=== PATIENT | male | born 1965 | race Caucasian/White ===

== ENCOUNTER → 2020-06-15 | Outpatient (CLI) | payer OTHER ==
[2015-04-29 13:02] VITALS: BP 128/73
[~2020-06-15] MED LIST: CELE200C PO; FERR325T14 PO; NAPR-514 PO; OMEG1000 PO; OXYC1TAB19 PO; WARF5TAB2 PO
--- NOTE | 2020-06-15 11:24 | KCIC ---
STUDY: MRI of the left shoulder without contrast INDICATION: Left shoulder pain. Recent trauma. COMPARISON: None. TECHNIQUE: Multiplanar MR imaging of the left shoulder performed without the use of intravenous or intra-articular contrast. 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 Relatively mild AC joint arthrosis though a cystic change at the clavicle side of the joint and mild intra-articular/capsular edema. No acromioclavicular or coracoclavicular ligament disruption. Mild subacromial subdeltoid bursitis. Rotator cuff: Full-thickness, essentially fullwidth tearing of both the supraspinatus and infraspinatus with only a few far posterior infraspinatus fibers remaining attached to the footprint. Tendinosis of the torn and retracted tendon fibers. Differential retraction with some supraspinatus fibers now approximately 3 cm medial to the footprint. Less pronounced retraction of torn infraspinatus by around 2 cm. The teres minor is intact. Subscapularis tendinosis without a high-grade or full-thickness tear. No significant rotator cuff muscular atrophy. Only mild supraspinatus and infraspinatus muscle edema mainly seen at the myotendinous junction. Labrum: Suspected subtle SLAP tear likely extending a few millimeters posterior to the biceps labral anchor. Long head biceps tendon: Intact and normally located. Cartilage: No full-thickness chondral defect is identified. Bones: No acute fracture. Degenerative osseous remodeling at the greater tuberosity. Miscellaneous: Reactive edema or hemorrhage extending downward along the anterior humeral shaft centered along the coracobrachialis muscle and surrounding the long head biceps tendon sheath. Long head biceps tenosynovitis. Impression: 1. Full-thickness, essentially fullwidth acute/subacute tearing of the supraspinatus and infraspinatus, as detailed in the body of the report. Only mild associated supraspinatus and infraspinatus muscular edema and there is no significant muscular atrophy. 2. Suspected subtle SLAP tear extending a few millimeters posterior to the biceps labral anchor. The long head biceps itself is intact and normally located. 3. Mild edema-like signal at the AC joint could be degenerative or on account of mild grade 1 sprain. Incidental note made of an os acromiale. 4. Reactive subacromial subdeltoid bursitis. Edema or hemorrhage extending downward along the anterior humeral shaft and surrounding the long head biceps tendon sheath. The tendon sheath is irregular distally but is favored unlikely injured and more likely from reactive tenosynovitis. Electronically signed by: SHAINA ARELLANO MD (06/15/2020 11:20 AM) [id number]
== END ==
LOC: KCIC MRI 08:36
PROVIDERS: ATTEND Physician Assistant Medical
DX: M19.012 Primary osteoarthritis, left shoulder (principal); M75.52 Bursitis of left shoulder; M75.122 Complete rotator cuff tear or rupture of left shoulder, not specified as traumatic; M25.412 Effusion, left shoulder
CPT/HCPCS: 73221